=== PATIENT | female | born 1965 ===

== ENCOUNTER 2017-05-08 13:25 | Emergency (ER) | payer MEDICAID, OTHER ==
[2017-05-08 13:53] VITALS: TEMP 98
--- NOTE | 2017-05-08 14:48 | C.PDOC ---
History Of Present Illness Patient presents to ED c/o LLQ pain x 4 days. She states the pain is sharp, and sometimes radiates to her left low back. She admits to nausea, but denies vomiting, diarrhea, dysuria/hematuria, fever, vaginal bleeding/discharge. Time Seen by Provider: 05/08/17 14:39 Chief Complaint (Nursing): Abdominal Pain History Per: Patient History/Exam Limitations: no limitations Onset/Duration Of Symptoms: Days (4) Current Symptoms Are (Timing): Still Present Severity: Mild Quality Of Discomfort: "Pain" Associated Symptoms: Nausea. denies: Fever, Chills, Vomiting, Diarrhea Abnormal Vaginal Bleeding: No Past Medical History Reviewed: Historical Data, Nursing Documentation, Vital Signs Vital Signs: Last Vital Signs Temp 98 F 05/08/17 13:50 Pulse 81 05/08/17 16:37 Resp 18 05/08/17 16:37 BP 111/73 05/08/17 16:37 Pulse Ox 100 05/08/17 16:37 - Medical History PMH: Asthma, Back Problems, Gastrointestinal Ulcer, HTN, Hypercholesterolemia, Chronic Pain Surgical History: Appendectomy, Cholecystectomy, Hernia Repair (2011) Family History: States: No Known Family Hx - Social History Hx Tobacco Use: No Hx Alcohol Use: No Hx Substance Use: No - Immunization History Hx Tetanus Toxoid Vaccination: No Hx Influenza Vaccination: Yes Hx Pneumococcal Vaccination: Yes Review Of Systems Except As Marked, All Systems Reviewed And Found Negative. Constitutional: Negative for: Fever, Chills Cardiovascular: Negative for: Chest Pain, Palpitations Respiratory: Negative for: Cough, Shortness of Breath Gastrointestinal: Positive for: Nausea. Negative for: Vomiting, Abdominal Pain Genitourinary: Negative for: Dysuria, Hematuria Physical Exam - Physical Exam Appears: Well, Non-toxic, In Acute Distress (in mild pain) Oral Mucosa: Moist Cardiovascular: Rhythm Regular Respiratory: Normal Breath Sounds, No Accessory Muscle Use, No Rales, No Rhonchi , No Wheezing Gastrointestinal/Abdominal: Bowel Sounds, Soft, Tenderness ((+) mild LLQ TTP, (- ) McBurney's), No Distention, No Guarding, No Rebound Back: Normal Inspection, No CVA Tenderness Neurological/Psych: Oriented x3 ED Course And Treatment - Laboratory Results Result Diagrams: 05/08/17 15:15 05/08/17 15:15 O2 Sat by Pulse Oximetry: 96 (RA) Pulse Ox Interpretation: Normal (r) - CT Scan/US Abdomen Pelvis CT Other Rad Studies (CT/US): Read By Radiologist, Radiology Report Reviewed CT/US Interpretation: FINDINGS: There is limited evaluation of the solid organs without the administration of IV contrast. LOWER THORAX: Tiny nodular densities in the peripheral right lower lobe. No visible consolidation, pleural effusion, or pneumothorax. LIVER: Unremarkable unenhanced appearance. GALLBLADDER AND BILE DUCTS: Unremarkable unenhanced appearance. PANCREAS: Unremarkable unenhanced appearance. SPLEEN: Unremarkable unenhanced appearance. ADRENALS: Unremarkable unenhanced appearance. KIDNEYS AND URETERS : No hydronephrosis or obstructing renal calculus. BLADDER: The urinary bladder appears unremarkable. REPRODUCTIVE: Uterus is present. APPENDIX: The appendix appears within normal limits of caliber. No secondary signs of acute appendicitis. BOWEL: The stomach is nondistended. Lack of oral contrast limits evaluation for bowel pathology. The bowel loops appear within normal limits of caliber without evidence of intestinal obstruction. Diverticulosis with mild stranding noted in the left lower quadrant possibly related to acute diverticulitis; correlate clinically. PERITONEUM: No significant free fluid. No definite free air. LYMPH NODES: No bulky lymphadenopathy identified. VASCULATURE: No aortic aneurysm. BONES: Mild sclerosis at the level of the sacroiliac joints with may reflect sacroiliitis. Mild scattered degenerative changes. OTHER FINDINGS: None. IMPRESSION: Tiny nodular densities in the peripheral right lower lobe. These may reflect infectious or inflammatory etiologies. If the patient is high risk for malignancy, optional CT at 12 months is recommended. Diverticulosis with mild stranding noted in the left lower quadrant possibly related to acute diverticulitis; correlate clinically. Additional incidental findings as above. Progress Note: Blood work, UA, UPreg and CT scan abd/pelvis ordered and reviewed. Patient given IV NS bolus, PO tylenol. CT scan (+) for mild stranding in LLQ, likely due to diverticulitis - PO Cipro and Flagyl given. Reevaluation Time: 16:30 Reassessment Condition: Improved (Patient reassessed, is resting comfortably, in no current pain. ON exam, abd is soft and nontender. Patient given Rxs for Cipro, Flagy and tylenol #3. She was instructed to drink plenty oif clear fluids, and follow up with PMD/clinic in 1-2 days. She understands she should return to ED if symptoms worsen.) Medical Decision Making Medical Decision Making: [facility] AWARE: DONNA JUAN 1965 2 [address] [facility] [id number] DONNA JUAN 1965 3 female [address] [facility] [id number] DONNA SCHULZ 1965 1 female [address] [facility] [id number] Report Criteria First Name: DONNA, Last Name: YESSICA SCHULZ, : 1965, ZIP Code: , City : , State: , Phone: , SSN: , DL: Summary Prescriptions:4 Prescribers:4 Pharmacies:2 Private Pay:0 Active Daily MME:0.0 Prescriptions Filled ID Written Drug QTY Days Prescriber Rx # Pharmacy* Refills MME/D Pymt Type HOSPITAL DIRECTOR 01/16/2017 1 01/16/2017 OXYCODONE-ACETAMINOPHEN 5-325 6.0 1 JE MCL [id number] [facility] ([id number]) 0 45.0 [facility] [place] 11/06/2016 1 11/06/2016 OXYCODONE-ACETAMINOPHEN 5-325 12.0 2 MA RAN [id number] [facility] ([id number]) 0 45.0 [facility] 06/18/2016 3 06/18/2016 OXYCODONE-ACETAMINOPHEN 5-325 10.0 1 KE DON [id number] [facility] ([id number]) 0 75.0 [facility] [place] 05/29/2016 2 05/29/2016 OXYCODONE-ACETAMINOPHEN 5-325 20.0 5 CY ANI [id number] [facility] ([id number]) 0 30.0 Comm [facility] [place] Disposition Counseled Patient/Family Regarding: Studies Performed, Diagnosis, Need For Followup, Rx Given - Disposition Referrals: [facility] [Outside] Disposition: HOME/ ROUTINE Disposition Time: 16:30 Condition: STABLE Additional Instructions: SEGUIMIENTO CON BOWER MDICO / CLNICA EN 1-2 YATES USE MEDICAMENTOS SEGN LO INDICADO BEBER [address] A BLAND DIET LENTAMENTE REGRESE AL RACHELLE DE EMERGENCIA SI LOS SNTOMAS EMPEORAN Prescriptions: Acetaminophen with Codeine [Tylenol with Codeine #3 Tablet] 1 each PO Q6 PRN # 15 tablet PRN Reason: pain Ciprofloxacin [Cipro] 1 tab PO BID #14 tab metroNIDAZOLE [Flagyl] 500 mg PO TID #21 tab Instructions: Diverticulitis (ED) Forms: [facility] (Occitan), Work Excuse Print Language: CYMRO - Clinical Impression Clinical Impression: Diverticulitis - Scribe Statement The provider has reviewed the documentation as recorded by the Scribe
[2017-05-08 15:09] LABS: RBC URINE 6 /hpf (0-3); URINE BILIRUBIN NEGATIVE (NEGATIVE); URINE BLOOD 1+ (NEGATIVE); URINE COLOR Yellow (YELLOW); URINE GLUCOSE (UA) NORMAL (Normal); URINE KETONE NEGATIVE (NEGATIVE); URINE LEUKOCYTE ESTERASE NEG Leu/uL (Negative); URINE PROTEIN NEGATIVE (NEGATIVE); URINE UROBILINOGEN NORMAL mg/dL (0.2-1.0); WBC URINE 1 /hpf (0-5)
[2017-05-08 15:22] LABS: BASO # 0.1 K/uL (0.0-0.2); BASO % 1.1 % (0.0-2.0); EOS # 0.2 K/uL (0.0-0.7); EOS % 2.5 % (0.0-4.0); HEMATOCRIT 39.5 % (34.0-47.0); LYMPH # 2.7 K/uL (1.0-4.3); LYMPH % 38.9 % (20.0-40.0); MEAN CORPUSCULAR HEMOGLOBIN 27.8 pg (27.0-31.0); MEAN CORPUSCULAR HGB CONC 32.6 g/dL (33.0-37.0); MEAN PLATELET VOLUME 8.5 fL (7.2-11.7); MONO # 0.5 K/uL (0.0-0.8); MONO % 7.5 % (0.0-10.0); NRBC % 0.1 % (0.0-2.0); RED CELL DISTRIBUTION WIDTH 14.3 % (11.5-14.5); WHITE BLOOD COUNT 6.9 K/uL (4.8-10.8)
[2017-05-08 15:24] LABS: MEAN CELL VOLUME 85.2 fL (81.0-99.0)
[2017-05-08 15:29] LABS: CHLORIDE 100 mmol/L (98-107)
[2017-05-08 15:30] LABS: POTASSIUM 3.7 mmol/L (3.6-5.2); SODIUM 135 mmol/L (132-148)
[2017-05-08 15:32] LABS: AST/SGOT 21 U/L (14-36); BILIRUBIN,TOTAL 0.8 mg/dL (0.2-1.3); CARBON DIOXIDE 23 mmol/L (22-30); GFR AFRICAN-AMERICAN > 60
[2017-05-08 15:33] LABS: ALB/GLOB RATIO 1.5 (1.0-2.1); ALKALINE PHOSPHATASE 73 U/L (38-126); ALT/SGPT 37 U/L (9-52); BLOOD UREA NITROGEN 10 mg/dL (7-17); CALCIUM 8.3 mg/dl (8.6-10.4); GLUCOSE,RANDOM 83 mg/dL (65-105); TOTAL PROTEIN 7.4 g/dL (6.3-8.3)
--- NOTE | 2017-05-08 16:01 | CT ---
PROCEDURE: CT Abdomen and Pelvis without Oral or IV contrast. HISTORY: llq pain COMPARISON: CT abdomen and pelvis without contrast performed 06/03/14. TECHNIQUE: Contiguous axial images of the abdomen and pelvis. No oral or IV contrast administered. Coronal and Sagittal reformats generated and reviewed. Radiation dose: Total exam DLP = 596.61 mGy-cm. This CT exam was performed using one or more of the following dose reduction techniques: Automated exposure control, adjustment of the mA and/or kV according to patient size, and/or use of iterative reconstruction technique. FINDINGS: There is limited evaluation of the solid organs without the administration of IV contrast. LOWER THORAX: Tiny nodular densities in the peripheral right lower lobe. No visible consolidation, pleural effusion, or pneumothorax. LIVER: Unremarkable unenhanced appearance. GALLBLADDER AND BILE DUCTS: Unremarkable unenhanced appearance. PANCREAS: Unremarkable unenhanced appearance. SPLEEN: Unremarkable unenhanced appearance. ADRENALS: Unremarkable unenhanced appearance. KIDNEYS AND URETERS: No hydronephrosis or obstructing renal calculus. BLADDER: The urinary bladder appears unremarkable. REPRODUCTIVE: Uterus is present. APPENDIX: The appendix appears within normal limits of caliber. No secondary signs of acute appendicitis. BOWEL: The stomach is nondistended. Lack of oral contrast limits evaluation for bowel pathology. The bowel loops appear within normal limits of caliber without evidence of intestinal obstruction. Diverticulosis with mild stranding noted in the left lower quadrant possibly related to acute diverticulitis; correlate clinically. PERITONEUM: No significant free fluid. No definite free air. LYMPH NODES: No bulky lymphadenopathy identified. VASCULATURE: No aortic aneurysm. BONES: Mild sclerosis at the level of the sacroiliac joints with may reflect sacroiliitis. Mild scattered degenerative changes. OTHER FINDINGS: None. IMPRESSION: Tiny nodular densities in the peripheral right lower lobe. These may reflect infectious or inflammatory etiologies. If the patient is high risk for malignancy, optional CT at 12 months is recommended. Diverticulosis with mild stranding noted in the left lower quadrant possibly related to acute diverticulitis; correlate clinically. Additional incidental findings as above.
[2017-05-08 16:37] VITALS: BP 111/73; PULSE 81; RESP 18
[2017-05-08 23:24] VITALS: O2SAT 96
== END 2017-05-08 16:37 | disposition home or self-care (01) ==
LOC: C.ER 13:25
DX: K57.92 Diverticulitis of intestine, part unspecified, without perforation or abscess without bleeding (principal); I10 Essential (primary) hypertension